=== PATIENT | female | born 1980 | race Caucasian/White ===

== ENCOUNTER → 2023-10-09 18:27 | Outpatient (REF) | payer OTHER, SELFPAY | LOC: MRI 18:27 | PROVIDERS: ATTENDING PHYSICIAN Orthopaedic Surgery Hand Surgery; FAMILY PHYSICIAN Physician Assistant | DX: R22.32 Localized swelling, mass and lump, left upper limb (principal) | CPT/HCPCS: 73223; A9575 ==

== ENCOUNTER → 2023-11-20 16:50 | Outpatient (REF) | payer OTHER, SELFPAY | LOC: MRI 3T 16:50 | PROVIDERS: ATTENDING PHYSICIAN Otolaryngology; FAMILY PHYSICIAN Physician Assistant | DX: H90.42 Sensorineural hearing loss, unilateral, left ear, with unrestricted hearing on the contralateral side (principal) | CPT/HCPCS: 70553; A9575 ==

== ENCOUNTER → 2024-03-16 13:57 | Outpatient (REF) | payer OTHER, SELFPAY | LOC: WDC 13:57 | PROVIDERS: ATTENDING PHYSICIAN Physician Assistant | DX: Z12.31 Encounter for screening mammogram for malignant neoplasm of breast (principal) | CPT/HCPCS: 77063; 77067 ==

== ENCOUNTER → 2024-05-07 06:46 | Outpatient (REF) | payer OTHER, SELFPAY | LOC: PAVMRI 06:46 | PROVIDERS: ATTENDING PHYSICIAN Physician Assistant; FAMILY PHYSICIAN Physician Assistant | DX: M54.14 Radiculopathy, thoracic region (principal); M54.16 Radiculopathy, lumbar region | CPT/HCPCS: 72146; 72148 ==

== ENCOUNTER 2024-05-11 06:13 | Day surgery (SDC) | payer OTHER, SELFPAY | END 2024-05-11 12:33 | disposition home or self-care (01) | LOC: GI 06:13 | PROVIDERS: ATTENDING PHYSICIAN Internal Medicine | DX: Z12.11 Encounter for screening for malignant neoplasm of colon (principal); K62.1 Rectal polyp; D12.3 Benign neoplasm of transverse colon | CPT/HCPCS: 45385; 88305 ==

== ENCOUNTER → 2024-05-25 07:02 | Outpatient (REF) | payer OTHER, SELFPAY | LOC: RAD 07:02 | PROVIDERS: ATTENDING PHYSICIAN Physician Assistant | DX: K76.9 Liver disease, unspecified (principal) | CPT/HCPCS: 76700 ==

== ENCOUNTER → 2024-07-25 08:52 | Outpatient (REF) | payer OTHER, SELFPAY | LOC: RAD 08:52 | PROVIDERS: ATTENDING PHYSICIAN Physician Assistant | DX: Z11.1 Encounter for screening for respiratory tuberculosis (principal) | CPT/HCPCS: 71046 ==